=== PATIENT | male | born 1995 | race Caucasian/White ===

== ENCOUNTER 2019-01-14 11:27 | Emergency (ER) | payer MEDICAID, OTHER ==
[2019-01-14 11:46] VITALS: BP 141/91; PULSE 91; O2SAT 97
--- NOTE | 2019-01-14 11:49 | ERPHSYRPT ---
- History of Present Illness Time Seen by Provider: 01/14/19 11:47 Source: patient Exam Limitations: no limitations Patient Subjective Stated Complaint: states he and his friend were wrestling last night and he injured his left ankle. Triage Nursing Assessment: to room per w/c. skin w/d, color normal. swelling noted to left ankle and top of foot. good pedal pulse. Physician History: states he and his friend were wrestling last night and he injured his left ankle. Method of Injury: sports injury Occurred: yesterday Quality: aching Lower Extremities Pain: ankle: left Allergies/Adverse Reactions: No Known Drug Allergies Allergy (Verified 01/14/19 11:36) Hx Tetanus, Diphtheria Vaccination/Date Given: Yes Hx Influenza Vaccination/Date Given: No Hx Pneumococcal Vaccination/Date Given: No - Review of Systems Constitutional: No Symptoms Eyes: No Symptoms Ears, Nose, & Throat: No Symptoms Respiratory: No Symptoms Cardiac: No Symptoms Abdominal/Gastrointestinal: No Symptoms Musculoskeletal: Joint Pain (left ankle) Neurological: No Symptoms - Past Medical History Pertinent Past Medical History: No Neurological History: No Pertinent History ENT History: No Pertinent History Cardiac History: No Pertinent History Respiratory History: No Pertinent History Endocrine Medical History: No Pertinent History Musculoskeletal History: No Pertinent History GI Medical History: No Pertinent History History: No Pertinent History Psycho-Social History: Anxiety Male Reproductive Disorders: No Pertinent History - Past Surgical History Past Surgical History: No Neuro Surgical History: No Pertinent History Cardiac: No Pertinent History Respiratory: No Pertinent History Gastrointestinal: No Pertinent History Genitourinary: No Pertinent History Musculoskeletal: No Pertinent History Male Surgical History: No Pertinent History - Social History Smoking Status: Never smoker How long have you smoked: 1 Exposure to second hand smoke: No Drug Use: none Patient Lives Alone: No - Nursing Vital Signs Nursing Vital Signs: Initial Vital Signs Temperature 99.1 F 01/14/19 11:33 Pulse Rate 91 H 01/14/19 11:33 Respiratory Rate 16 01/14/19 11:33 Blood Pressure 141/91 01/14/19 11:33 O2 Sat by Pulse Oximetry 97 01/14/19 11:33 Pain Scale Pain Intensity 8 - Physical Exam General Appearance: no apparent distress Eyes, Ears, Nose, Throat Exam: normal ENT inspection Neck Exam: normal inspection Hips Exam: bilateral: non-tender Legs Exam: bilateral leg: non-tender Knees Exam: bilateral knee: non-tender Ankle Exam: left ankle: limited range of motion, soft tissue tenderness SpO2: 97 - Course Nursing assessment & vital signs reviewed: Yes - Radiology Exams Left Ankle X-ray Interpretation: Reviewed by me (no acute fracture) Ordered Tests: Active Orders 24 hr Category Date Time Status ANKLE (3 VIEWS) Stat Exams 01/14/19 12:04 Taken - Progress Progress: improved, pain not gone completely Counseled pt/family regarding: diagnosis, need for follow-up, rad results - Departure Time of Disposition: 12:11 Departure Disposition: Home Clinical Impression: Sprain and strain of ankle Condition: Stable Critical Care Time: No Referrals: MATILDE BARCLAY MD [Primary Care Provider] - Instructions: Ankle Sprain (DC) Additional Instructions: SPRAINS/STRAINS/CONTUSIONS 1. Rest the affected area as much as possible for the next few days. 2. Apply ice to the affected area for 20-30 minutes at a time, several times a day. 3. If you receive an elastic wrap, wear it only while awake for comfort and support. Re-wrap the elastic wrap if it feels too tight or too loose. 4. If swelling is present, elevate the affected part above the level of the heart for at least 2 to 3 days. 5. Use splints, slings, or crutches as instructed. 6. Watch for severe swelling, coldness, numbness, and discoloration of the fingers and toes. See your family physician or return to the emergency department if any of these are noted. Prescriptions: Cyclobenzaprine HCl 10 mg [Flexeril 10 MG] 10 mg PO TID #30 tablet Naproxen 375 mg [Naprosyn 375 mg] 375 mg PO Q8H #30 tablet
--- NOTE | 2019-01-14 20:48 | XRAY ---
Indication: Pain following injury. Comparison: None 3 views of the left ankle demonstrates mild soft tissue swelling. No other bony, articular, or soft tissue abnormalities.
== END 2019-01-14 12:42 | disposition home or self-care (01) ==
LOC: ED 11:27
DX: S93.402A Sprain of unspecified ligament of left ankle, initial encounter (principal); X50.0XXA Overexertion from strenuous movement or load, initial encounter; X50.9XXA Other and unspecified overexertion or strenuous movements or postures, initial encounter; X50.3XXA Overexertion from repetitive movements, initial encounter; Y93.72 Activity, wrestling; F41.9 Anxiety disorder, unspecified; Z79.899 Other long term (current) drug therapy
CPT/HCPCS: 73610; 99283

== ENCOUNTER 2020-01-09 17:19 | Emergency (ER) | payer BC, OTHER ==
[2020-01-09 17:31] VITALS: BP 123/78; PULSE 74; O2SAT 99
--- NOTE | 2020-01-09 17:36 | ERPHSYRPT ---
- History of Present Illness Time Seen by Provider: 01/09/20 17:35 Source: patient Exam Limitations: no limitations Patient Subjective Stated Complaint: pt here for a laceration to right thumb today while using a table saw, no bleeding at present time Triage Nursing Assessment: pt alert, walked in, resp easy, skin w/d/p. has avulsion laceration to right thumb, no bleeding at present time Physician History: 24-year-old right-handed white male who presents with a laceration to his right thumb. Occurred just prior to arrival while he was at work. Patient was using a table saw when the accidental laceration occurred. Patient status is unknown at this time. Timing/Duration: today Quality: painful Severity: mild Location: hands (Thumb of right hand) Possible Causes: other (Laceration by table saw) Associated Symptoms: denies symptoms Allergies/Adverse Reactions: No Known Drug Allergies Allergy (Verified 01/09/20 17:32) Home Medications: No Reportable Medications [No Reported Medications] 01/09/20 [History] Hx Tetanus, Diphtheria Vaccination/Date Given: No Hx Influenza Vaccination/Date Given: No Hx Pneumococcal Vaccination/Date Given: No Immunizations Up to Date: Yes - Review of Systems Constitutional: No Symptoms Eyes: No Symptoms Ears, Nose, & Throat: No Symptoms Respiratory: No Symptoms Cardiac: No Symptoms Abdominal/Gastrointestinal: No Symptoms Genitourinary Symptoms: No Symptoms Musculoskeletal: Injury (Laceration to palmar aspect, distal location right thumb) Skin: Other (Laceration as above) Neurological: No Symptoms Psychological: No Symptoms Endocrine: No Symptoms Hematologic/Lymphatic: No Symptoms Immunological/Allergic: No Symptoms All Other Systems: Reviewed and Negative - Past Medical History Pertinent Past Medical History: No Neurological History: No Pertinent History ENT History: No Pertinent History Cardiac History: No Pertinent History Respiratory History: No Pertinent History Endocrine Medical History: No Pertinent History Musculoskeletal History: No Pertinent History GI Medical History: No Pertinent History History: No Pertinent History Psycho-Social History: Anxiety Male Reproductive Disorders: No Pertinent History - Past Surgical History Past Surgical History: No Neuro Surgical History: No Pertinent History Cardiac: No Pertinent History Respiratory: No Pertinent History Gastrointestinal: No Pertinent History Genitourinary: No Pertinent History Musculoskeletal: No Pertinent History Male Surgical History: No Pertinent History - Social History Smoking Status: Never smoker How long have you smoked: 1 Exposure to second hand smoke: No Drug Use: none Patient Lives Alone: No - Nursing Vital Signs Nursing Vital Signs: Initial Vital Signs Temperature 97 F 01/09/20 17:26 Pulse Rate 74 01/09/20 17:26 Respiratory Rate 16 01/09/20 17:26 Blood Pressure 123/78 01/09/20 17:26 O2 Sat by Pulse Oximetry 99 01/09/20 17:26 Pain Scale Pain Intensity 9 - Physical Exam General Appearance: no apparent distress, alert Eye Exam: PERRL/EOMI, eyes nml inspection Ears, Nose, Throat Exam: normal ENT inspection, moist mucous membranes Neck Exam: normal inspection, non-tender, supple, full range of motion Respiratory Exam: lungs clear, airway intact, No chest tenderness, No respiratory distress Cardiovascular Exam: normal peripheral pulses Gastrointestinal/Abdomen Exam: No tenderness Rectal Exam: not done Back Exam: normal inspection, normal range of motion, No CVA tenderness, No vertebral tenderness Extremity Exam: normal range of motion, pelvis stable, lacerations (Right thumb) Neurologic Exam: alert, oriented x 3, cooperative, 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, normal mood/affect, nml cerebellar function, nml station & gait, sensation nml Skin Exam: laceration (Right thumb) Lymphatic Exam: No adenopathy SpO2 Interpretation: normal SpO2: 99 O2 Delivery: Room Air Procedures - Laceration/Wound Repair Right Distal Volar Finger Wound Location: hand (Distal right thumb palmar aspect) Wound Length (cm): 1.5 Wound's Depth, Shape: superficial Wound Explored: No foreign body bloodless field to the base Irrigated: Yes Hibiclens Prep: Yes Anesthesia: local, 1% Lidocaine Volume Anesthetic (ccs): 3 Wound Repaired With: sutures Suture Size/Type: 4-0 Number of Sutures: 4 Progress: 01/09/20 18:09 Patient told the procedure well no complications bacitracin ointment applied. Nonstick gauze applied and pressure dressing to right thumb applied. - Course Nursing assessment & vital signs reviewed: Yes Ordered Tests: Active Orders 24 hr Category Date Time Status Wound Care STAT Care 01/09/20 18:03 Active Medication Summary Discontinued Medications Generic Name Dose Route Start Last Admin Trade Name Freq PRN Reason Stop Dose Admin Bacitracin Zinc 0.9 gm 01/09/20 18:03 Baciguent Packet TP 01/09/20 18:04 STAT ONE Diphtheria/Tetanus/Acell Pertussis 0.5 ml 01/09/20 18:03 Adacel Vial IM 01/09/20 18:04 .ONCE ONE Lidocaine HCl 5 ml 01/09/20 18:03 Xylocaine 1% Hcl 20 Ml Mdv IJ 01/09/20 18:04 STAT ONE - Progress Progress: improved Counseled pt/family regarding: diagnosis, need for follow-up - Departure Departure Disposition: Home Clinical Impression: Thumb laceration Condition: Stable Critical Care Time: No Referrals: MATILDE BARCLAY MD [Primary Care Provider] - Additional Instructions: Use Tylenol and ibuprofen for pain. Keep current dressing in place until tomorrow evening. Tomorrow evening, remove dressing wash daily thereafter. Rinse area with hydroperoxide once daily after washing. Use hairdryer or blot dry. Apply antibiotic ointment to area and reapply Band-Aid or other type of dressing daily. Suture removal in 8 to 10 days.
[2020-01-09] MEDS ORDERED: Adacel Vial IM ONE ×2 (18:03→18:13)
[2020-01-09] MEDS ORDERED: XYLOCAINE 1% HCL 20 ML MDV IJ ONE (18:03)
[2020-01-09] MEDS ORDERED: BACIGUENT PACKET TP ONE (18:03)
[2020-01-09] MEDS ORDERED: BACIGUENT PACKET ONE (18:13)
[2020-01-09] MEDS ORDERED: XYLOCAINE 1% HCL 20 ML MDV ONE (18:13)
== END 2020-01-09 18:29 | disposition home or self-care (01) ==
LOC: ED 17:19
DX: S61.011A Laceration without foreign body of right thumb without damage to nail, initial encounter (principal); W29.8XXA Contact with other powered hand tools and household machinery, initial encounter; Y92.89 Other specified places as the place of occurrence of the external cause; Y99.0 Civilian activity done for income or pay
CPT/HCPCS: 12001; 90471; 90715; 99284; A9270-GY

== ENCOUNTER 2020-12-06 23:12 | Emergency (ER) | payer BC ==
[2020-12-06] MEDS ORDERED: XYLOCAINE 1% HCL 20 ML MDV IJ ONE (23:13)
[2020-12-06] MEDS ORDERED: TYLENOL 325 MG PO STA (23:51)
--- NOTE | 2020-12-06 23:51 | ERPHSYRPT ---
- History of Present Illness Time Seen by Provider: 12/06/20 23:48 Source: patient Exam Limitations: no limitations Patient Subjective Stated Complaint: pt states "I have had a fever, stomach pain, and blisters in my mouth." Triage Nursing Assessment: pt ambulated into the er; pt is axo x3; c/o fever, epigastric pain, sore throat; pt tested for covid on tuesday with negative result; fever for past 4 days; temp of 100.3; blisters, redness, and excudate to throat; pt states 7/10 pain to epigastric region; pain to epigastric region with palpation; active bowel sounds in all quads; pt states that he took tylenol 24 hr this morning; pt states that he has not checked his tempature the past couple days; hypertensive Physician History: pt states "I have had a fever, stomach pain, and blisters in my mouth." c/o fever, epigastric pain, sore throat; pt tested for covid on tuesday with negative result; fever for past 4 days; temp of 100.3; blisters, redness, and excudate to throat; pt states 7/10 pain to epigastric region Timing/Duration: day(s) (four days) Fever Severity: moderate Fever Therapy CAR WASH ATTENDANT: none Associated Symptoms: abdominal pain, sore throat Allergies/Adverse Reactions: No Known Drug Allergies Allergy (Verified 12/06/20 23:19) Hx Tetanus, Diphtheria Vaccination/Date Given: Yes (2019) Hx Influenza Vaccination/Date Given: No Hx Pneumococcal Vaccination/Date Given: No Travel Risk - International Travel Have you traveled outside of the country in past 3 weeks: No - Coronavirus Screening Are you exhibiting any of the following symptoms?: Yes Symptoms: Fever, Shortness of Breath, Vomiting/Diarrhea, Headaches/Body Aches/Fatigue Close contact with a COVID-19 positive Pt in past 14-21 Days: No - Review of Systems Constitutional: Fever, No Chills Eyes: No Symptoms Ears, Nose, & Throat: No Symptoms, Throat Pain Respiratory: No Cough, No Dyspnea Cardiac: No Chest Pain, No Edema, No Syncope Abdominal/Gastrointestinal: No Abdominal Pain, No Nausea, No Vomiting, No Diarrhea Genitourinary Symptoms: No Dysuria Musculoskeletal: No Back Pain, No Neck Pain Skin: No Rash Neurological: No Dizziness, No Focal Weakness, No Sensory Changes Psychological: No Symptoms Endocrine: No Symptoms All Other Systems: Reviewed and Negative - Past Medical History Pertinent Past Medical History: No Neurological History: No Pertinent History ENT History: No Pertinent History Cardiac History: No Pertinent History Respiratory History: No Pertinent History Endocrine Medical History: No Pertinent History Musculoskeletal History: No Pertinent History GI Medical History: No Pertinent History History: No Pertinent History Psycho-Social History: Anxiety Male Reproductive Disorders: No Pertinent History - Past Surgical History Past Surgical History: No Neuro Surgical History: No Pertinent History Cardiac: No Pertinent History Respiratory: No Pertinent History Gastrointestinal: No Pertinent History Genitourinary: No Pertinent History Musculoskeletal: No Pertinent History Male Surgical History: No Pertinent History - Social History Smoking Status: Light tobacco smoker How long have you smoked: 1 Exposure to second hand smoke: No Drug Use: none Patient Lives Alone: No - Nursing Vital Signs Nursing Vital Signs: Initial Vital Signs Temperature 100.3 F 12/06/20 23:21 Pulse Rate 77 12/06/20 23:21 Respiratory Rate 18 12/06/20 23:21 Blood Pressure 143/84 12/06/20 23:21 O2 Sat by Pulse Oximetry 99 12/06/20 23:21 Pain Scale Pain Intensity 7 - Physical Exam General Appearance: no apparent distress, alert Eye Exam: PERRL/EOMI ENT Exam: normal ENT inspection, pharyngeal erythema, No tonsillar exudate Neck Exam: supple, full range of motion, No meningismus Respiratory Exam: normal breath sounds, lungs clear, no respiratory distress Cardiovascular/Chest Exam: normal heart sounds, regular rate/rhythm, No murmur, No edema Gastrointestinal/Abdominal Exam: soft, no distention, no mass, no guarding, tenderness (epigastric area) Extremity Exam: non-tender, normal range of motion, normal inspection, normal capillary refill Neurologic Exam: alert, oriented x 3, cooperative, 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, normal mood/affect, sensation nml, No motor deficits Skin Exam: normal color, warm, dry, No rash SpO2: 99 Ordered Tests: Active Orders 24 hr Category Date Time Status CBC W DIFF Stat Lab 12/06/20 23:55 Completed CMP Stat Lab 12/06/20 23:55 Completed Manual Differential NC Stat Lab 12/06/20 23:55 Completed Medication Summary Discontinued Medications Generic Name Dose Route Start Last Admin Trade Name Freq PRN Reason Stop Dose Admin Acetaminophen 975 mg 12/06/20 23:51 12/06/20 23:55 Tylenol 325 Mg PO 12/06/20 23:52 975 mg STAT STA Administration Acetaminophen Confirm 12/06/20 23:53 Tylenol 325 Mg Administered 12/06/20 23:54 Dose 975 mg .ROUTE .STK-MED ONE Magnesium Hydroxide 45 ml 12/07/20 00:20 Gi Cocktail 45 Ml (Maalox/Lidocaine) PO 12/07/20 00:21 STAT ONE Lab/Rad Data: Laboratory Result Diagrams 12/06/20 23:55 12/06/20 23:55 Laboratory Results 12/06/20 12/06/20 12/06/20 Range/Units 23:55 23:55 23:55 WBC 6.9 (4.0-10.5) K/mm3 RBC 4.60 (4.1-5.6) M/mm3 Hgb 14.2 (12.5-18.0) gm/dl Hct 43.7 (42-50) % MCV 95.0 (78-100) fl MCH 30.9 (26-32) pg MCHC 32.5 (32-36) g/dl RDW 12.4 (11.5-14.0) % Plt Count 221 (150-450) K/mm3 MPV 9.1 (7.5-11.0) fl Sodium 134 L (137-145) mmol/L Potassium 4.0 (3.5-5.1) mmol/L Chloride 98 (98-107) mmol/L Carbon Dioxide 30 (22-30) mmol/L Anion Gap 10.3 (5-15) MEQ/L BUN 8 L (9-20) mg/dL Creatinine 1.10 (0.66-1.25) mg/dL Estimated GFR > 60.0 ML/MIN Glucose 93 (74-106) mg/dL Calcium 9.5 (8.4-10.2) mg/dL Total Bilirubin 0.20 (0.2-1.3) mg/dL AST 23 (17-59) U/L ALT 22 (0-50) U/L Alkaline Phosphatase 60 (38-126) U/L Serum Total Protein 7.2 (6.3-8.2) g/dL Albumin 4.0 (3.5-5.0) g/dL Group A Strep Antibody DETECTED (NEGATIVE) - Progress Progress: improved, pain not gone completely Counseled pt/family regarding: lab results, diagnosis, need for follow-up - Departure Departure Disposition: Home Clinical Impression: Strep pharyngitis Condition: Stable Critical Care Time: No Referrals: MATILDE BARCLAY MD [Primary Care Provider] - Instructions: Strep Throat (DC) Additional Instructions: Discharge/Care Plan ARLEY BELLE was seen on 12/07/20 in the Emergency Room. The patient was counseled regarding Diagnosis,Lab results, Imaging studies, need for follow up and when to return to the Emergency Room. Prescriptions given: Discharge Note I have spoken with the patient and/or caregivers. I have explained the patient's condition, diagnosis and treatment plan based on the information available to me at this time. I have answered the patient's and/or caregiver's questions and addressed any concerns. The patient and/or caregivers have as good understanding of the patient's diagnosis, condition and treatment plan as can be expected at this point. The vital signs have been stable. The patient's condition is stable and appropriate for discharge from the emergency department. The patient will pursue further outpatient evaluation with the primary care physician or other designated or consulting physician as outlined in the discharge instructions. The patient and/or caregivers are agreeable to this plan of care and follow-up instructions have been explained in detail. The patient and/or caregivers have received these instruction. The patient/and or caregivers are aware that any significant change in condition or worsening of symptoms should prompt an immediate return to this or the closest emergency department or call 911. ARLEY BELLE was seen on 12/07/20 n the Emergency Room. At that time you were treated for an emergent condition, during your visit Laboratory, Radiology and/or other procedures may have been ordered. It is very important that you follow-up with your Primary Care Physician MATILDE BARCLAY within the next 24-48 hours to review your Emergency Room visit and the final results of testing that was ordered. Some test results such as Urine Cultures, Blood Cultures, and other cultures if ordered will not be finalized for 24-48 hours. If you do not have a Primary Care Provider please call the medical records department at [phone] to obtain a copy of your results or you may sign into our patient portal to obtain these results by visiting us @ [email or web address] and completing the following steps: 1. Click on the Patient Portal link 2. Click the Patient Self Enrollment Link to complete the enrollment form and entering your 3. Once the enrollment form is completed you will receive an email with a tempor rambo ID and password at the email address you provided. 4. Next choose a user name and password. Your user name must be at least 4 characters long and your password must be at least 4 characters long. 5. Choose a security question from the list and provide your answer to the question. If you already have signed into the Health Portal you may access your Health Care Information 16/05 by the following steps: 1. Login to our website @ [email or web address] 2. Enter your original user name and password. FAQS The [facility] Health Portal is an online tool that contains your Lab Results, Radiology Reports, Visit History, Discharge Instructions and Health Summary Lab and Radiology Results will not be available for 72 hours on the portal. The Portal is a secure site, passwords are encryted and URLs are re-written so they cannot be copied and pasted. You and authorized family members are the only ones who can access your Portal. Also there is a timeout feature that protects your information if you leave the Portal page open. If you have technical difficulty please use the Contact Us link on the page this will allow you to submit any questions you have regarding the Portal or you may contact the Medical Record Department at [phone]. Prescriptions: Azithromycin [Zithromax] 250 mg PO UD 5 Days #6 tablet
[2020-12-06] MEDS ORDERED: TYLENOL 325 MG ONE (23:53)
[2020-12-07 00:14] LABS: Hematocrit 43.7 % (42-50); Hemoglobin 14.2 gm/dl (12.5-18.0); Mean Corpuscular Hemoglobin 30.9 pg (26-32); Mean Corpuscular Hgb Concent. 32.5 g/dl (32-36); Mean Platelet Volume 9.1 fl (7.5-11.0); Platelet Count 221 K/mm3 (150-450); Red Cell Distribution Width 12.4 % (11.5-14.0); White Blood Count 6.9 K/mm3 (4.0-10.5)
[2020-12-07 00:18] LABS: ALKALINE PHOSPHATASE 60 U/L (38-126); ANION GAP 10.3 MEQ/L (5-15); BLOOD UREA NITROGEN 8 mg/dL (9-20); CHLORIDE 98 mmol/L (98-107); Calcium 9.5 mg/dL (8.4-10.2); Carbon Dioxide 30 mmol/L (22-30); EST GLOMERULAR FILTRATION RATE > 60.0 ML/MIN; Glucose 93 mg/dL (74-106); SGOT/AST 23 U/L (17-59); SGPT/ALT 22 U/L (0-50); SODIUM 134 mmol/L (137-145); Total Protein 7.2 g/dL (6.3-8.2)
[2020-12-07] MEDS ORDERED: GI COCKTAIL 45 ML (Maalox/Lidocaine) PO ONE (00:20)
[2020-12-07] MEDS ORDERED: Rocephin 1000 MG INJ IM ONE (00:31)
[2020-12-07] MEDS ORDERED: XYLOCAINE HCl Viscous ONE (00:32)
[2020-12-07] MEDS ORDERED: MAALOX ES 30 ML UNIT DOSE ONE (00:32)
[2020-12-07] MEDS ORDERED: Rocephin 1000 MG INJ ONE (00:36)
[2020-12-07 00:44] VITALS: BP 121/74; PULSE 70; O2SAT 97
[2020-12-07 00:53] LABS: Eosinophil 1 % (0.00-3.0); Lymphocytes 35 % (24-44); Monocyte 10 % (0.0-12.0); Neutrophils 54 % (36.-66.); Platelet Estimate NORMAL (NORMAL); Total Cells Counted 100
== END 2020-12-07 00:49 | disposition home or self-care (01) ==
LOC: ED 23:12
DX: R50.9 Fever, unspecified (principal); J02.0 Streptococcal pharyngitis; R10.9 Unspecified abdominal pain; R07.0 Pain in throat
CPT/HCPCS: 36415; 80053; 85025; 87651; 96372; 99284; J0696; A9270-GY

== ENCOUNTER 2023-07-01 20:01 | Emergency (ER) | payer SELFPAY ==
--- NOTE | 2023-07-01 20:06 | ERPHSYRPT ---
- History of Present Illness Time Seen by Provider: 07/01/23 20:06 Source: patient Exam Limitations: no limitations Physician History: This is a 27-year-old white male who works out in the field and sustained a splinter that is of significance in his left dorsal forearm. He was able to break off a portion of this large splinter but the other portion was deep into the skin causing approximately 1/2 cm overlying skin laceration. His tetanus status up-to-date having had a tetanus in 2019. Patient's primary care provider is Dr. Barclay Timing/Duration: today Quality: painful Severity: mild (To moderate) Location: extremities (Left forearm dorsal aspect) Possible Causes: other (Broken off splinter) Associated Symptoms: denies symptoms Allergies/Adverse Reactions: No Known Drug Allergies Allergy (Verified 07/01/23 20:08) Hx Tetanus, Diphtheria Vaccination/Date Given: Yes (2019) Hx Influenza Vaccination/Date Given: No Hx Pneumococcal Vaccination/Date Given: No Travel Risk - International Travel Have you traveled outside of the country in past 3 weeks: No - Coronavirus Screening Are you exhibiting any of the following symptoms?: No Close contact with a COVID-19 positive Pt in past 14-21 Days: No - Review of Systems Constitutional: No Symptoms Eyes: No Symptoms Ears, Nose, & Throat: No Symptoms Respiratory: No Symptoms Cardiac: No Symptoms Abdominal/Gastrointestinal: No Symptoms Genitourinary Symptoms: No Symptoms Musculoskeletal: Injury (Splinter in the dorsal aspect of the left forearm mid portion) Skin: Other Neurological: No Symptoms (See above) Endocrine: No Symptoms Hematologic/Lymphatic: No Symptoms Immunological/Allergic: Pollen Allergy All Other Systems: Reviewed and Negative - Past Medical History Pertinent Past Medical History: No Neurological History: No Pertinent History ENT History: No Pertinent History Cardiac History: No Pertinent History Respiratory History: No Pertinent History Endocrine Medical History: No Pertinent History Musculoskeletal History: No Pertinent History GI Medical History: No Pertinent History History: No Pertinent History Psycho-Social History: Anxiety Male Reproductive Disorders: No Pertinent History - Past Surgical History Past Surgical History: No Neuro Surgical History: No Pertinent History Cardiac: No Pertinent History Respiratory: No Pertinent History Gastrointestinal: No Pertinent History Genitourinary: No Pertinent History Musculoskeletal: No Pertinent History Male Surgical History: No Pertinent History - Social History Smoking Status: Light tobacco smoker How long have you smoked: 1 Exposure to second hand smoke: No Drug Use: none Patient Lives Alone: No - Nursing Vital Signs Nursing Vital Signs: Initial Vital Signs Temperature 97.9 F 07/01/23 20:08 Pulse Rate 70 07/01/23 20:08 Respiratory Rate 14 07/01/23 20:08 Blood Pressure 109/65 07/01/23 20:08 O2 Sat by Pulse Oximetry 98 07/01/23 20:08 Pain Scale Pain Intensity 4 - Physical Exam General Appearance: no apparent distress, alert, anxiety Eye Exam: PERRL/EOMI, eyes nml inspection Ears, Nose, Throat Exam: normal ENT inspection, moist mucous membranes Neck Exam: normal inspection, non-tender, supple, full range of motion Respiratory Exam: normal breath sounds, lungs clear, airway intact, No chest tenderness, No respiratory distress Gastrointestinal/Abdomen Exam: No tenderness Rectal Exam: not done Back Exam: normal inspection, normal range of motion, No CVA tenderness, No vertebral tenderness Extremity Exam: normal range of motion, pelvis stable, lacerations (Approximately 1.5 cm dorsal aspect left forearm. Deep palpable foreign body present), swelling (Dorsal aspect left forearm dorsal aspect left forearm), tenderness Neurologic Exam: alert, oriented x 3, cooperative, pilot captain II-XII nml as tested, normal mood/affect, nml cerebellar function, nml station & gait, sensation nml Skin Exam: normal color, warm, dry, laceration (With retained foreign body) Lymphatic Exam: No adenopathy SpO2 Interpretation: normal O2 Delivery: Room Air Procedures - Additional Procedures Progress: Procedure note with procedure time of approximately 8:40 PM. The area left forearm dorsal aspect was prepped widely with Betadine swabs. Under sterile conditions, approximately 12 to 13 cc of 1% lidocaine plain was used to anesthetize the skin, subcutaneous tissue and the fascia and underlying muscle in this region. I had to extend the laceration both proximally and distally to create an opening of approximately 4 cm. I was able to palpate the tip of what is likely a significant splinter but was unable to grasp to pull out. It was through the skin, through the subcutaneous tissue, through the fascia covering the underlying muscle and these layers were anesthetized. I then used a hemostat to attempt to grasp this foreign body but unable to do so. I then used 2 hemostats to dissect down into the muscle but again was unsuccessful in removing the foreign body. Therefore, I marked the area that I could feel the foreign body with a 3-0 Prolene suture. I explained to the patient the rationale for this suture. I then approximated the subcutaneous layer with two 3-0 Vicryl suture and placed 2 skin deyanira on the skin to loosely approximate the skin. We then cleaned the area and placed a pressure dressing on the site. An x-ray will be obtained. - Course Nursing assessment & vital signs reviewed: Yes Ordered Tests: Active Orders 24 hr Category Date Time Status FOREARM Stat Exams 07/01/23 20:07 Taken Medication Summary Discontinued Medications Generic Name Dose Route Start Last Admin Trade Name Rodri PRN Reason Stop Dose Admin Cephalexin HCl 500 mg 07/01/23 21:17 07/01/23 21:31 Cephalexin Mh500 Mg Capsule PO 07/01/23 21:18 500 mg STAT ONE Administration Cephalexin HCl Confirm 07/01/23 21:29 Cephalexin Mh500 Mg Capsule Administered 07/01/23 21:30 Dose 500 mg .ROUTE .STK-MED ONE Lidocaine HCl Confirm 07/01/23 20:45 Lidocaine Hcl 1% 20 Ml Mdv 20 Ml Ml Administered 07/01/23 20:46 Dose 5 ml .ROUTE .STK-MED ONE Lidocaine HCl 10 ml 07/01/23 20:57 07/01/23 20:59 Lidocaine Hcl 1% 20 Ml Mdv 20 Ml Ml IJ 07/01/23 20:58 10 ml STAT ONE Administration Oxycodone/Acetaminophen 2 tab 07/01/23 21:17 Oxycodone Hcl/Apap 5 Mg/325 Mg Tablet PO 07/01/23 21:18 SENT HOME W/ PATIENT STA - Progress Progress: improved, pain not gone completely Progress Note: 07/01/23 21:13 Patient's medical issue is 1 of low complexity. Level complexity in the work-up performed is based on review of the patient's past medical history, review the patient's drug allergy list, history of present illness and physical findings on examination. The work-up performed is that x-ray of the left forearm post exploration. 07/01/23 21:38 I reviewed and interpreted the patient's left forearm x-ray. I do not appreciate a radiopaque foreign body. I even inverted the image to white and black rather than [id number]. Counseled pt/family regarding: diagnosis, need for follow-up, rad results Medical Desision Making - Diagnostic Testing Diagnostic test were ordered, analyzed, and reviewed by me: Yes Radiological Interpretation: Interpreted by me - Risk of complications The pt has a mod risk of morbidity or mortality based on: Need for prescription drug management - Departure Departure Disposition: Home Clinical Impression: Foreign body in left forearm Condition: Stable Critical Care Time: No Referrals: MATILDE BARCLAY MD [Primary Care Provider] - Follow up/PCP as directed Additional Instructions: Keep the current dressing in place until the morning of 07/03/2023. At that time you may remove the dressing and rinse the site with soap and water. Blot dry and use a hair rooting machine operator. Do not place any lotion ointments or creams to this area. Take your antibiotics and pain medicine as prescribed. Call your primary care provider's office on the morning of 07/04/2023 to make arrangements for referral to a general surgeon for reexploration of this wound and foreign body removal. Forms: Work/School Release Form Prescriptions: Oxycodone HCl/Acetaminophen [Percocet 5-325 mg Tablet] 1 each PO Q8H PRN PRN #6 tablet MDD 3 PRN Reason: Moderate To Severe Pain Cephalexin Mh 500 mg [Keflex 500 mg] 500 mg PO TID #21 cap
[2023-07-01 20:18] VITALS: RESP 14; TEMP 97.9; O2SAT 98
[2023-07-01] MEDS ORDERED: XYLOCAINE 1% HCL 20 ML MDV ONE (20:45)
[2023-07-01] MEDS ORDERED: XYLOCAINE 1% HCL 20 ML MDV IJ ONE (20:57)
[2023-07-01 21:06] VITALS: BP 122/64; PULSE 72
[2023-07-01] MEDS ORDERED: PERCOCET TABLET 5/325MG PO STA (21:17)
[2023-07-01] MEDS ORDERED: KEFLEX 500 MG PO ONE (21:17)
[2023-07-01] MEDS ORDERED: KEFLEX 500 MG ONE (21:29)
[2023-07-01] MEDS ORDERED: PERCOCET TABLET 5/325MG ONE (21:42)
--- NOTE | 2023-07-02 07:29 | XRAY ---
Indication: Pain. Splinter. Comparison: None 2 view left forearm demonstrates posterior soft tissue swelling and tiny simultaneous emphysema favoring laceration with 2 overlying cutaneous deyanira. 2 mm ossification anterior to wrist possibly developmental. Fracture not completely excluded in right clinical setting. No other bony, articular, or soft tissue abnormalities.
== END 2023-07-01 21:49 | disposition home or self-care (01) ==
LOC: ED 20:01
DX: S51.822A Laceration with foreign body of left forearm, initial encounter (principal); Z72.0 Tobacco use; Z79.891 Long term (current) use of opiate analgesic
CPT/HCPCS: 20520; 73090; 96372; 99283; A9270-GY